=== PATIENT | female | born 1995 | race Caucasian/White ===

== ENCOUNTER 2024-02-15 23:54 | Emergency (ER) | payer OTHER ==
[~2024-02-15] VITALS: Ht 160 cm; Wt 59.0 kg
[2024-02-16 00:10] VITALS: BP 117/57; PULSE 84; RESP 18; TEMP 98.6; O2SAT 100
[2024-02-16] MEDS: IBUPROFEN 600MG TABLET PO STA (01:43)
[2024-02-16] MEDS ORDERED: IBUP-2029 MT (03:29)
== END 2024-02-16 03:11 | disposition home or self-care (01) ==
LOC: ER 23:54
DX: S09.90XA Unspecified injury of head, initial encounter (principal); R42 Dizziness and giddiness; R11.0 Nausea; W22.8XXA Striking against or struck by other objects, initial encounter; Y93.89 Activity, other specified; Y92.89 Other specified places as the place of occurrence of the external cause; Y99.8 Other external cause status
CPT/HCPCS: 99284